=== PATIENT | female | born 1960 | race Caucasian/White ===

== ENCOUNTER 2018-03-05 15:10 | Observation (INO) | payer BC ==
[2018-03-05 15:34] LABS: Absolute Lymphocytes (CBC) 1.9 K/uL (0.7-4.9); Absolute Monocytes 0.7 K/uL (0.1-1.3); Absolute Neutrophil 3.9 K/uL (1.8-8.0); Basophils % 0.4 % (0-1.3); Eosinophils % 3.3 % (0-4.4); Hematocrit 46.3 % (36.0-45.0); Lymphocytes % 28.2 % (15.3-44.8); MCH 30.3 pg (27.0-35.0); MCV 91.7 fL (80-100); MPV 8.8 fL (7.6-11.3); RBC Red Blood Cell Count 5.05 M/uL (3.86-4.86)
[2018-03-05 15:40] LABS: Protime INR 0.9
[2018-03-05 15:54] LABS: Albumin 4.1 g/dL (3.4-5.0); Bilirubin Direct 0.1 mg/dL (0-0.2); Bilirubin Total 0.4 mg/dL (0.2-1.0); Magnesium 2.3 mg/dL (1.8-2.4); Potassium 3.8 mmol/L (3.5-5.1); Protein, Total 7.8 g/dL (6.4-8.2)
--- NOTE | 2018-03-05 17:26 | RAD REPORT ---
EXAM DESCRIPTION: Mathieu Single View03/05/2018 3:50 pm CLINICAL HISTORY: Chest pain COMPARISON: none FINDINGS: The lungs appear clear of acute infiltrate. The heart is normal size IMPRESSION: No acute abnormalities displayed
--- NOTE | 2018-03-05 18:14 | EDPHYS ---
Physician Documentation [facility] Name: Saloni Reyna Age: 57 yrs Sex: Female : 1960 Arrival Date: 03/05/2018 Time: 15:10 Bed 25 Private MD: Zach Luna B ED Physician Eugenio Islas HPI: 03/05 17:11 This 57 yrs old Female presents to ER via Ambulatory with complaints of Chest jr8 Pain, Shortness Of Breath. 17:11 The patient or guardian reports chest pain that is located primarily in the substernal jr8 area. Onset: acutely, today. The pain does not radiate. Associated signs and symptoms: Pertinent positives: shortness of breath. The chest pain is described as sharp. Duration: The patient or guardian reports a single episode. Modifying factors: The symptoms are alleviated by nothing. the symptoms are aggravated by nothing. Severity of pain: At its worst the pain was moderate in the emergency department the pain has improved. The patient has not experienced similar symptoms in the past. The patient has not recently seen a physician. Patient stated that she woke up not feeling well. Has been tired for some time. Recently was put on medicine to help her sleep. Stated that she has been under a lot of stress lately. brought her and wanted her to be checked out because she started to have chest pain and shortness of breath. Stated that she was staring off into space. Patient recalls all events . Historical: - Allergies: 15:40 No Known Allergies; kr2 - Home Meds: 15:40 omeprazole 40 mg Oral cpDR 1 cap once daily [Active]; duloxetine oral oral once daily kr2 [Active]; 15:41 multivitamin oral cap [Active]; kr2 - PMHx: 15:40 Hypertension; kr2 - PSHx: 15:40 Endometrial Ablation; Liposuction; kr2 - Immunization history:: Adult Immunizations unknown. - Social history:: Smoking status: Patient/guardian denies using tobacco. - Ebola Screening: : No symptoms or risks identified at this time. ROS: 17:11 Eyes: Negative for injury, pain, redness, and discharge, ENT: Negative for injury, jr8 pain, and discharge, Neck: Negative for injury, pain, and swelling, Abdomen/GI: Negative for abdominal pain, nausea, vomiting, diarrhea, and constipation, Back: Negative for injury and pain, MS/Extremity: Negative for injury and deformity, Skin: Negative for injury, rash, and discoloration, Neuro: Negative for headache, weakness, numbness, tingling, and seizure. 17:11 Cardiovascular: Positive for chest pain, Negative for edema, orthopnea, palpitations, paroxysmal nocturnal dyspnea. 17:11 Respiratory: Positive for shortness of breath, Negative for cough, dyspnea on exertion, hemoptysis, orthopnea, pleurisy, sputum production, wheezing. Exam: 17:11 Constitutional: This is a well developed, well nourished patient who is awake, alert, jr8 and in no acute distress. Eyes: Pupils equal round and reactive to light, extra-ocular motions intact. Lids and lashes normal. Conjunctiva and sclera are non-icteric and not injected. Cornea within normal limits. Periorbital areas with no swelling, redness, or edema. ENT: Nares patent. No nasal discharge, no septal abnormalities noted. Tympanic membranes are normal and external auditory canals are clear. Oropharynx with no redness, swelling, or masses, exudates, or evidence of obstruction, uvula midline. Mucous membranes moist. Neck: Trachea midline, no thyromegaly or masses palpated, and no cervical lymphadenopathy. Supple, full range of motion without nuchal rigidity, or vertebral point tenderness. No Meningismus. Cardiovascular: Regular rate and rhythm with a normal S1 and S2. No gallops, murmurs, or rubs. Normal PMI, no JVD. No pulse deficits. Respiratory: Lungs have equal breath sounds bilaterally, clear to auscultation and percussion. No rales, rhonchi or wheezes noted. No increased work of breathing, no retractions or nasal flaring. Abdomen/GI: Soft, non-tender, with normal bowel sounds. No distension or tympany. No guarding or rebound. No evidence of tenderness throughout. Back: No spinal tenderness. No costovertebral tenderness. Full range of motion. Skin: Warm, dry with normal turgor. Normal color with no rashes, no lesions, and no evidence of cellulitis. MS/ Extremity: Pulses equal, no cyanosis. Neurovascular intact. Full, normal range of motion. Neuro: Awake and alert, GCS 15, oriented to person, place, time, and situation. Cranial nerves II-XII grossly intact. Motor strength 5/5 in all extremities. Sensory grossly intact. Cerebellar exam normal. Normal gait. Vital Signs: 15:25 BP 185 / 100; Pulse 60; Resp 22; Temp 97.7; Pulse Ox 99% on 2 lpm NC; Weight 58.06 kg; kr2 Height 5 ft. 4 in. (162.56 cm); Pain 5/10; 15:43 BP 158 / 89; Pulse 76; Resp 18; Pulse Ox 98% on 2 lpm NC; kr2 16:30 BP 169 / 93; Pulse 74; Resp 18; Pulse Ox 98% on R/A; kr2 17:36 BP 159 / 87; Pulse 70; Resp 16; Pulse Ox 99% on R/A; kr2 18:03 BP 155 / 75; Pulse 72; Resp 16; Pulse Ox 98% ; kr2 19:00 BP 152 / 78; Pulse 70; Resp 19; Pulse Ox 99% on R/A; kr2 20:00 BP 158 / 70; Pulse 72; Resp 17; Pulse Ox 99% on R/A; kr2 21:15 BP 160 / 87; Pulse 78; Resp 17; Pulse Ox 100% on R/A; kr2 22:30 BP 156 / 88; Pulse 70; Resp 18; Pulse Ox 99% on R/A; kr2 23:20 BP 146 / 86; Pulse 68; Resp 17; Pulse Ox 97% on 2 lpm NC; kr2 15:25 Body Mass Index 21.97 (58.06 kg, 162.56 cm) kr2 23:20 Patient placed back on nasal cannula by provider for comfort kr2 MDM: 15:16 Patient medically screened. jr8 17:11 Differential diagnosis: abnormal EKG, acute myocardial infarction, acute pericarditis, jr8 anxiety, chest wall pain, costochondritis, esophagitis, gastritis, gastroesophageal reflux disease (GERD), pancreatitis, pleurisy, pneumonia, pulmonary embolus, stable angina, thoracic aortic disection, unstable angina. Data reviewed: vital signs, nurses notes, lab test result(s), EKG, radiologic studies, plain films. Data interpreted: Pulse oximetry: on room air is 98 %. Interpretation: normal. Counseling: I had a detailed discussion with the patient and/or guardian regarding: the historical points, exam findings, and any diagnostic results supporting the discharge/admit diagnosis, lab results, radiology results, the need for outpatient follow up, a family practitioner, to return to the emergency department if symptoms worsen or persist or if there are any questions or concerns that arise at home. 19:38 Counseling: I had a detailed discussion with the patient and/or guardian regarding: the pm1 historical points, exam findings, and any diagnostic results supporting the discharge/admit diagnosis, lab results, the need for further work-up and treatment in the hospital. 19:40 ED course: Patient with chest pain level between 0-1 prior to being told that she will pm1 be hospitalized. 20:50 ED course: Patient reports chest pain level 4/10. Pain medication ordered. pm1 22:15 ED course: Patient reports increased chest pain 6/10. Repeat ECG ordered. Will give pm1 patient nitro 1 inch paste.. 22:20 ED course: No ECG changes present. pm1 23:02 ED course: Nitropaste effective for pain relief. Patient reports pain level 2/10. pm1 03/05 15:16 Order name: Basic Metabolic Panel; Complete Time: 15: [facility] 03/05 15:16 Order name: CBC with Diff; Complete Time: 15: [facility] 03/05 15:16 Order name: LFT's; Complete Time: 15: [facility] 03/05 15:16 Order name: Magnesium; Complete Time: 15: 03/05 15:16 Order name: NT PRO-BNP; Complete Time: 15: 03/05 15:16 Order name: PT-INR; Complete Time: 15: [facility] 03/05 15:16 Order name: Troponin (emerg Dept Use Only); Complete Time: 15: [facility] 03/05 16:54 Order name: Troponin (emerg Dept Use Only); Complete Time: 19: [facility] 03/05 17:42 Order name: Urine Dipstick--Ancillary (enter results); Complete Time: 19: 03/05 20:41 Order name: Lipid Profile [facility] 03/05 20:41 Order name: Lipid Profile; Complete Time: 07:16 [facility] 03/05 20:41 Order name: Troponin I [facility] 03/05 20:41 Order name: Troponin I; Complete Time: 07:16 [facility] 03/05 20:41 Order name: Troponin I; Complete Time: 07:16 [facility] 03/05 15:16 Order name: XRAY Chest (1 view); Complete Time: 17:27 [facility] 03/05 15:16 Order name: EKG; Complete Time: 15:16 [facility] 03/05 15:16 Order name: Cardiac monitoring; Complete Time: 15:25 [facility] 03/05 15:16 Order name: EKG - Nurse/Tech; Complete Time: 15:25 [facility] 03/05 15:16 Order name: IV Saline Lock; Complete Time: 15: [facility] 03/05 15:16 Order name: Labs collected and sent; Complete Time: 15: [facility] 03/05 15:16 Order name: O2 Per Protocol; Complete Time: 15: [facility] 03/05 15:16 Order name: O2 Sat Monitoring; Complete Time: 15: [facility] 03/05 20:41 Order name: CONS Physician Consult [facility] 03/05 20:42 Order name: Heart Healthy [facility] 03/05 20:42 Order name: EKG Electrocardiogram [facility] 03/05 20:42 Order name: EKG Electrocardiogram [facility] 03/05 15:16 Order name: Urine Dipstick-Ancillary (obtain specimen); Complete Time: 17:17 jr Administered Medications: 19:53 Drug: Aspirin Chewable Tablet 324 mg Route: PO; kr2 21:23 Follow up: Response: No adverse reaction kr2 21:15 Drug: morphine 4 mg Route: IVP; Site: left antecubital; kr2 21:42 Follow up: Response: No adverse reaction; Pain is decreased kr2 21:23 Not Given (Patient Refused): Lovenox 1 mg/kg Sub-Q once kr2 22:44 Drug: Nitro-Bid Ointment 2 % 1 inches Route: Transdermal; Site: anterior chest wall; kr2 23:33 Follow up: Response: No adverse reaction; Pain is decreased kr2 Disposition: 03/06 07:17 Co-signature as Attending Physician, Eugenio Islas MD. rn Disposition: 03/05/18 19:40 Hospitalization ordered by Kurt Caputo for Observation. Preliminary diagnosis is Chest pain, unspecified. - Bed requested for Telemetry/MedSurg (observation). - Status is Observation. kr2 - Condition is Stable. - Problem is new. - Symptoms have improved. UTI on Admission? No Signatures: Dispatcher [employer] EDMS Nury Smith RN RN mw Eugenio Islas MD MD rn Roszak, Josh, PA PA jr8 Eduardo Lynch, HAT BRIM CURLER HAT BRIM CURLER pm1 An Rangel, RN RN kr2 Corrections: (The following items were deleted from the chart) 03/05 18:13 18:13 03/05/2018 18:13 Discharged to Home. Impression: Chest pain, unspecified. jr8 Condition is Stable. Forms are Medication Reconciliation Form, Thank You Letter, Antibiotic Education, Prescription Opioid Use. Follow up: Zach Luna; When: 2 - 3 days; Reason: Recheck today's complaints, Continuance of care, Re-evaluation by your physician. Problem is new. Symptoms have improved. jr8 19:39 18:13 03/05/2018 18:13 Discharged to Home. Impression: Chest pain, unspecified; Anxiety pm1 disorder, unspecified. Condition is Stable. Forms are Medication Reconciliation Form, Thank You Letter, Antibiotic Education, Prescription Opioid Use. Follow up: Zach Luna; When: 2 - 3 days; Reason: Recheck today's complaints, Continuance of care, Re-evaluation by your physician. Problem is new. Symptoms have improved. jr8 20:46 19:40 Hospitalization Ordered by Kurt Caputo MD for Observation. Preliminary mw diagnosis is Chest pain, unspecified. Bed requested for Telemetry/MedSurg (observation). Status is Observation. Condition is Stable. Problem is new. Symptoms have improved. UTI on Admission? No. pm1 23:41 20:46 03/05/2018 19:40 Hospitalization Ordered by Kurt Caputo MD for Observation. kr2 Preliminary diagnosis is Chest pain, unspecified. Bed requested for Telemetry/MedSurg (observation). Status is Observation. Condition is Stable. Problem is new. Symptoms have improved. UTI on Admission? No. mw
--- NOTE | 2018-03-05 18:14 | ER ---
Nurse's Notes [facility] Name: Saloni Reyna Age: 57 yrs Sex: Female : 1960 Arrival Date: 03/05/2018 Time: 15:10 Bed 25 Private MD: Zach Luna B Diagnosis: Chest pain, unspecified Presentation: 03/05 15:20 Presenting complaint: Patient states: she has "not been feeling right all day and kr2 started having pain in the center of her chest. Transition of care: patient was not received from another setting of care. Onset of symptoms was March 05, 2018. Risk Assessment: Do you want to hurt yourself or someone else? Patient reports no desire to harm self or others. Initial Sepsis Screen: Does the patient meet any 2 criteria? No. Patient's initial sepsis screen is negative. Does the patient have a suspected source of infection? No. Patient's initial sepsis screen is negative. Care prior to arrival: None. 15:20 Method Of Arrival: Ambulatory kr2 15:20 Acuity: GREGOR 3 kr2 Triage Assessment: 15:30 General: Appears distressed, uncomfortable, well groomed, well developed, well kr2 nourished, Behavior is cooperative, anxious. Pain: Complains of pain in xyphoid area and mid-sternal area. EENT: Oral mucosa is moist. Neuro: Level of Consciousness is awake, alert, obeys commands, Oriented to person, place, time, situation, Appropriate for age. Cardiovascular: Capillary refill < 3 seconds in bilateral fingers Patient's skin is warm and dry. Respiratory: Airway is patent Respiratory effort is even, unlabored, Respiratory pattern is hyperventilation Patient instructed to slow breathing, followed instructions and deep breaths taken in through nose and out through her mouth Breath sounds are clear bilaterally. GI: Abdomen is flat, non-distended. : Denies burning with urination. Derm: Skin is intact, is healthy with good turgor, Skin is pink, warm \\T\\ dry. Musculoskeletal: Circulation, motion, and sensation intact. Historical: - Allergies: 15:40 No Known Allergies; kr2 - Home Meds: 15:40 omeprazole 40 mg Oral cpDR 1 cap once daily [Active]; duloxetine oral oral once daily kr2 [Active]; 15:41 multivitamin oral cap [Active]; kr2 - PMHx: 15:40 Hypertension; kr2 - PSHx: 15:40 Endometrial Ablation; Liposuction; kr2 - Immunization history:: Adult Immunizations unknown. - Social history:: Smoking status: Patient/guardian denies using tobacco. - Ebola Screening: : No symptoms or risks identified at this time. Screenin:29 Abuse screen: Denies threats or abuse. Denies injuries from another. Nutritional kr2 screening: No deficits noted. Tuberculosis screening: No symptoms or risk factors identified. Fall Risk None identified. Assessment: 15:25 Pain: Pain does not radiate. Pain began gradually. kr2 15:25 Reassessment: See triage assessment. kr2 15:44 Reassessment: Patient appears in no apparent distress at this time. Patient and/or kr2 family updated on plan of care and expected duration. Pain level reassessed. Patient is alert, oriented x 3, equal unlabored respirations, skin warm/dry/pink. Patient states she is feeling better that the pain is resolving. Family member at bedside states that as long as he reminds her to slow her breathing the pain goes away and she feels better. 16:30 Reassessment: Patient appears in no apparent distress at this time. Patient and/or kr2 family updated on plan of care and expected duration. Pain level reassessed. Patient is alert, oriented x 3, equal unlabored respirations, skin warm/dry/pink. Patient denies pain at this time. Patient states feeling better. 17:30 Reassessment: Patient appears in no apparent distress at this time. Patient and/or kr2 family updated on plan of care and expected duration. Pain level reassessed. Patient is alert, oriented x 3, equal unlabored respirations, skin warm/dry/pink. Patient denies pain at this time. Patient states feeling better. 18:30 Reassessment: Patient appears in no apparent distress at this time. Patient and/or kr2 family updated on plan of care and expected duration. Pain level reassessed. Patient is alert, oriented x 3, equal unlabored respirations, skin warm/dry/pink. Patient denies pain at this time. Patient states feeling better. 19:30 Reassessment: No changes from previously documented assessment. kr2 21:49 Reassessment: Patient appears in no apparent distress at this time. Patient and/or kr2 family updated on plan of care and expected duration. Pain level reassessed. Patient is alert, oriented x 3, equal unlabored respirations, skin warm/dry/pink. Patient complains of burning pressure in the center of her chest, rates a 6/10. States "I was fine until just about 1 minute ago" Provider notified. EKG ordered and being performed by tech at this time. Room on telemetry floor not ready at this time. 23:26 Reassessment: Patient appears in no apparent distress at this time. Patient and/or kr2 family updated on plan of care and expected duration. Pain level reassessed. Patient is alert, oriented x 3, equal unlabored respirations, skin warm/dry/pink. Report called to receiving nurse Tatiana. Patient states feeling better. Patient states symptoms have improved. Vital Signs: 15:25 BP 185 / 100; Pulse 60; Resp 22; Temp 97.7; Pulse Ox 99% on 2 lpm NC; Weight 58.06 kg; kr2 Height 5 ft. 4 in. (162.56 cm); Pain 5/10; 15:43 BP 158 / 89; Pulse 76; Resp 18; Pulse Ox 98% on 2 lpm NC; kr2 16:30 BP 169 / 93; Pulse 74; Resp 18; Pulse Ox 98% on R/A; kr2 17:36 BP 159 / 87; Pulse 70; Resp 16; Pulse Ox 99% on R/A; kr2 18:03 BP 155 / 75; Pulse 72; Resp 16; Pulse Ox 98% ; kr2 19:00 BP 152 / 78; Pulse 70; Resp 19; Pulse Ox 99% on R/A; kr2 20:00 BP 158 / 70; Pulse 72; Resp 17; Pulse Ox 99% on R/A; kr2 21:15 BP 160 / 87; Pulse 78; Resp 17; Pulse Ox 100% on R/A; kr2 22:30 BP 156 / 88; Pulse 70; Resp 18; Pulse Ox 99% on R/A; kr2 23:20 BP 146 / 86; Pulse 68; Resp 17; Pulse Ox 97% on 2 lpm NC; kr2 15:25 Body Mass Index 21.97 (58.06 kg, 162.56 cm) kr2 23:20 Patient placed back on nasal cannula by provider for comfort kr2 ED Course: 15:10 Patient arrived in ED. mr 15:11 Zach Luna MD is Private Physician. mr 15:16 Azar Clifton PA is PHCP. jr8 15:16 Eugenio Islas MD is Attending Physician. jr8 15:20 Patient has correct armband on for positive identification. Bed in low position. Call kr2 light in reach. Side rails up X2. Adult w/ patient. court recording monitor on. Pulse ox on. NIBP on. Sitter at bedside. Door closed. Warm blanket given. Head of bed elevated. 15:20 Inserted saline lock: 22 gauge in left antecubital area, using aseptic technique. Blood kr2 collected. 15:22 Oxygen administration via nasal cannula \\T\\ 2L/min. kr2 15:25 An Rangel, CHICO is Primary Nurse. kr2 15:29 Triage completed. kr2 15:32 Arm band placed on. kr2 15:35 EKG done, by business technology architect. reviewed by Azar JONES. sm3 15:42 X-ray completed. Portable x-ray completed in exam room. Patient tolerated procedure bb2 well. 15:44 XRAY Chest (1 view) In Process Unspecified. EDMS 18:13 Zach Luna MD is Referral Physician. jr8 19:20 IV discontinued, intact, bleeding controlled, No redness/swelling at site. Pressure kr2 dressing applied, Patient wanted IV removed. 19:38 PHCP role handed off by Azar Clifton PA pm1 19:38 Eduardo Lynch NP is PHCP. pm1 19:40 Kurt Caputo MD is Hospitalizing Provider. pm1 21:10 Inserted saline lock: 22 gauge in left hand, using aseptic technique. kr2 21:50 EKG done, by ED staff, reviewed by Dru Dahl MD. kr2 23:28 No provider procedures requiring assistance completed. kr2 Administered Medications: 19:53 Drug: Aspirin Chewable Tablet 324 mg Route: PO; kr2 21:23 Follow up: Response: No adverse reaction kr2 21:15 Drug: morphine 4 mg Route: IVP; Site: left antecubital; kr2 21:42 Follow up: Response: No adverse reaction; Pain is decreased kr2 21:23 Not Given (Patient Refused): Lovenox 1 mg/kg Sub-Q once kr2 22:44 Drug: Nitro-Bid Ointment 2 % 1 inches Route: Transdermal; Site: anterior chest wall; kr2 23:33 Follow up: Response: No adverse reaction; Pain is decreased kr2 Outcome: 18:13 Discharge ordered by . marilu 19:40 Decision to Hospitalize by Provider. pm1 23:29 Admitted to Tele accompanied by tech, family with patient, via wheelchair, room 428, kr2 with oxygen, with chart, Report called to Tatiana 23:29 Condition: stable 23:29 Instructed on the need for admit, Demonstrated understanding of instructions. 23:41 Patient left the ED. kr2 Signatures: Dispatcher [employer] EDMS Fernanda Linares mr Azar Clifton, ROBERT PA jr8 Eduardo Lynch, SCHOOL ATTENDANCE SECRETARY SCHOOL ATTENDANCE SECRETARY pm1 An Rangel RN RN kr2 Shannan Shi bb2 Madina Chambers sm3 Corrections: (The following items were deleted from the chart) 15:44 15:25 BP 158 / 89; Pulse 60bpm; Resp 22bpm; Pulse Ox 99% 2 lpm Nasal Cannula; Temp kr2 97.7F; 58.06 kg; Height 5 ft. 4 in.; BMI: 21.9; Pain 5/10; kr2 23:28 21:49 Reassessment: Patient appears in no apparent distress at this time. Patient kr2 and/or family updated on plan of care and expected duration. Pain level reassessed. Patient is alert, oriented x 3, equal unlabored respirations, skin warm/dry/pink. Patient complains of burning pressure in the center of her chest, rates a 6/10. States "I was fine until just about 1 minute ago" Provider notified. EKG ordered and being performed by [employer] at this time kr2 23:28 23:26 Reassessment: Report called to receiving nurse Tatiana. kr2 kr2 23:36 23:34 BP 146 / 86; Pulse 68bpm; Resp 17bpm; Pulse Ox 97% 2 lpm Nasal Cannula; Patient kr2 placed back on nasal cannula by provider for comfort ; kr2
--- NOTE | 2018-03-05 18:48 | EKG ---
Test Date: 2018-03-05 Test Time: 15:20:09 Paper Gluing Operator: EMILIA MEASUREMENT RESULTS: Intervals: Rate: 89 MT: 122 QRSD: 74 QT: 380 QTc: 462 Gilbert: P: 70 MT: 122 QRS: 90 T: 44 INTERPRETIVE STATEMENTS: Sinus rhythm with premature atrial complexes Rightward axis Borderline ECG No previous ECG available for comparison Electronically Signed On 03-05-18 18:47:09 CDT by Ravi Faustin
[2018-03-05 19:18] LABS: Urine Blood NEGATIVE (NEG); Urine Glucose NEGATIVE (NEG); Urine Protein NEGATIVE (NEG); Urine pH 7.5 (5.0-7.0)
[2018-03-05] MEDS ORDERED: ASPIRIN 81 MG CHEWABLE TABLET ONE (19:52)
[2018-03-05] MEDS ORDERED: ACETAMINOPHEN 500 MG TAB PO PRN (20:39)
[2018-03-05] MEDS ORDERED: ALPRAZOLAM 0.25 MG TABLET PO PRN (20:39)
[2018-03-05] MEDS ORDERED: MORPHINE 4 MG/ML SYR IV PRN (20:39)
[2018-03-05] MEDS ORDERED: MORPHINE 4 MG/ML SYR ONE (21:01)
[2018-03-05] MEDS ORDERED: NITROGLYCERIN 1 GM PKT TD ONE (22:44)
[2018-03-05 23:59] VITALS: BMI 21.2
[2018-03-06] MEDS: METOPROLOL TAR 50 MG TAB PO SCH ×2 (00:03→09:11)
--- NOTE | 2018-03-06 06:59 | P.HP ---
Certification for Inpatient Patient admitted to: Observation With expected LOS: <2 Midnights Patient will require the following post-hospital care: None Practitioner: I am a practitioner with admitting privileges, knowledge of patient current condition, hospital course, and medical plan of care. Services: Services provided to patient in accordance with Admission requirements found in Title 42 Section 412.3 of the Code of Federal Regulations Patient History Date of Service: 03/05/18 Reason for admission: Chest pain rule out acute coronary syndrome History of Present Illness: Patient is a 57-year-old female who recently saw her primary care provider and had a good checkup. Patient has a history of hypertension however she has not been treated with any medications for years. She maintains her blood pressure by exercising and eating properly. This evening she was not feeling well and was having chest discomfort. She came into the emergency room and her blood pressure was significantly elevated. A couple days ago her blood pressure was 120 is over 80s. She was surprised her blood pressure was so elevated. The physician reading assistant who saw her in the emergency room gave her nitro paste and aspirin. Patient blood pressure is stable. Patient was admitted for rule out for acute coronary syndrome as her 2nd troponin had become slightly elevated. Patient denies any history of diabetes or cholesterol. She denies any significant family history. Patient does not smoke. Patient was not diaphoretic or short of breath. Her only current complaint is a headache from most likely the nitropaste. Allergies No Known Allergies Allergy (Unverified 03/05/18 20:50) Home Medications: Duloxetine HCl 60 mg PO BEDTIME 03/06/18 Estradiol/Norethindrone Acet [Estradiol-Noreth 1-0.5 mg Tab] 1 tab PO DAILY Omeprazole [Prilosec] 40 mg PO [facility] 03/06/18 - Past Medical/Surgical History Has patient received pneumonia vaccine in the past: No Diabetic: No -: HTN -: Tonsillectomy -: breast reduction -: liposuction -: endometrial ablation - Family History Mother Notes: Alzheimers Father Medical History: Hypertension, Diabetes - Social History Smoking Status: Never smoker Alcohol use: Yes CD- Drugs: No Caffeine use: Yes Place of Residence: Home Review of Systems 10-point ROS is otherwise unremarkable Physical Examination - Vital Signs Temperature: 98 F Blood Pressure: 97/57 Pulse: 52 Respirations: 20 Pulse Ox (%): 98 - Physical Exam General: Alert, In no apparent distress, Oriented x3 HEENT: Atraumatic, PERRLA, Mucous membr. moist/pink, EOMI, Sclerae nonicteric Neck: Supple, 2+ carotid pulse no bruit, No LAD, Without JVD or thyroid abnormality Respiratory: Clear to auscultation bilaterally, Normal air movement Cardiovascular: Regular rate/rhythm, Normal S1 S2, No murmurs Gastrointestinal: Normal bowel sounds, Soft and benign, Non-distended, No tenderness Musculoskeletal: No clubbing, No swelling, No tenderness Integumentary: No rashes Neurological: Normal gait, Normal speech, Normal strength at 5/5 x4 extr, Normal tone, Sensation intact, Cranial nerves 3-12 intact, Normal affect Lymphatics: No axilla or inguinal lymphadenopathy - Studies Laboratory Data (last 24 hrs) 03/05/18 15:20: PT 10.6, INR 0.90 03/05/18 15:20: WBC 6.8, Hgb 15.3 H, Hct 46.3 H, Plt Count 246 03/05/18 15:20: Sodium 140, Potassium 3.8, BUN 8, Creatinine 0.90, Glucose 109 H , Magnesium 2.3, Total Bilirubin 0.4, AST 24, ALT 20, Alkaline Phosphatase 101 Assessment & Plan - Problems (Diagnosis) (1) Chest pain, rule out acute myocardial infarction Current Visit: Yes Status: Acute - Plan 1. Serial troponins and EKG 2. Cardiology consultation 3. Echocardiogram and inpatient stress test(pending cardiology evaluation) 4. Anti-platelet therapy, anti coagulation, beta-sanju, statin, and O2 as needed 5. IV morphine for pain 6. Nitro p.r.n. Discharge Plan: Home Plan to discharge in: 24 Hours - Advance Directives Does patient have a Living Will: No Does patient have a Durable POA for Healthcare: No - Code Status/Comfort Care Code Status Assessed: Yes Code Status: Full Code Critical Care: No Time Spent Managing PTS Care (In Minutes): 50
--- NOTE | 2018-03-06 07:54 | P.DS ---
Discharge Date: 03/06/18 Disposition: ROUTINE DISCHARGE Discharge Condition: GOOD Reason for Admission: Chest pain rule out acute coronary syndrome Consultations: CARDIOLOGY - Problems (1) Chest pain, rule out acute myocardial infarction Current Visit: Yes Status: Acute Brief History of Present Illness: Patient is a 57-year-old female who recently saw her primary care provider and had a good checkup. Patient has a history of hypertension however she has not been treated with any medications for years. She maintains her blood pressure by exercising and eating properly. This evening she was not feeling well and was having chest discomfort. She came into the emergency room and her blood pressure was significantly elevated. A couple days ago her blood pressure was 120 is over 80s. She was surprised her blood pressure was so elevated. The physician topographical field assistant who saw her in the emergency room gave her nitro paste and aspirin. Patient blood pressure is stable. Patient was admitted for rule out for acute coronary syndrome as her 2nd troponin had become slightly elevated. Patient denies any history of diabetes or cholesterol. She denies any significant family history. Patient does not smoke. Patient was not diaphoretic or short of breath. Her only current complaint is a headache from most likely the nitropaste. Hospital Course: PATIENT'S TROPONINS HAVE BEEN NEGATIVE. PATIENT'S BLOOD PRESSURE IS BETTER CONTROLLED. CLINICALLY PATIENT IS DOING WELL AND IS STABLE FOR DISCHARGE HOME. PATIENT WILL FOLLOW UP WITH PRIMARY CARE PROVIDER IN 1-2 WEEKS. Vital Signs/Physical Exam: Temp Pulse Resp BP Pulse Ox 98 F 52 20 97/57 L 98 03/06/18 07:51 03/06/18 07:51 03/06/18 07:51 03/06/18 07:51 03/06/18 07:51 General: Alert, In no apparent distress, Oriented x3 Laboratory Data at Discharge: WBC 6.8 K/uL (4.3-10.9) 03/05/18 15:20 Hgb 15.3 g/dL (12.0-15.0) H 03/05/18 15:20 Hct 46.3 % (36.0-45.0) H 03/05/18 15:20 Plt Count 246 K/uL (152-406) 03/05/18 15:20 PT 10.6 SECONDS (9.5-12.5) 03/05/18 15:20 INR 0.90 03/05/18 15:20 Sodium 140 mmol/L (136-145) 03/05/18 15:20 Potassium 3.8 mmol/L (3.5-5.1) 03/05/18 15:20 BUN 8 mg/dL (7-18) 03/05/18 15:20 Creatinine 0.90 mg/dL (0.55-1.3) 03/05/18 15:20 Glucose 109 mg/dL (74-106) H 03/05/18 15:20 Magnesium 2.3 mg/dL (1.8-2.4) 03/05/18 15:20 Total Bilirubin 0.4 mg/dL (0.2-1.0) 03/05/18 15:20 AST 24 U/L (15-37) 03/05/18 15:20 ALT 20 U/L (12-78) 03/05/18 15:20 Alkaline Phosphatase 101 U/L (45-117) 03/05/18 15:20 Troponin I < 0.02 ng/mL (0.0-0.045) 03/06/18 04:58 Triglycerides 58 mg/dL (<150) 03/06/18 04:58 Cholesterol 186 mg/dL (<200) 03/06/18 04:58 HDL Cholesterol 66 mg/dL (40-60) H 03/06/18 04:58 Cholesterol/HDL Ratio 2.82 03/06/18 04:58 Home Medications: Duloxetine HCl 60 mg PO BEDTIME 03/06/18 Estradiol/Norethindrone Acet [Estradiol-Noreth 1-0.5 mg Tab] 1 tab PO DAILY Omeprazole [Prilosec] 40 mg PO [facility] 03/06/18 Patient Discharge Instructions: OK TO DC IV AND DC HOME IF OKAY WITH CARDIOLOGY. FOLLOW-UP WITH PRIMARY CARE PROVIDER IN 1-2 WEEKS. FOLLOW-UP WITH CARDIOLOGY IN 1-2 WEEKS. RETURN TO THE ER IF SYMPTOMS WORSENS. CALL DR. BRICEÑO AT [phone] IF ANY QUESTIONS REGARDING HOSPITAL STAY. PLEASE CALL THE FLOOR AT IF ANY MEDICATION OR NURSING QUESTIONS. Diet: Low sodium Activity: Fall precautions Time spent managing pt's care (in minutes): 20
--- NOTE | 2018-03-06 08:17 | EKG ---
Test Date: 2018-03-05 Test Time: 21:52:36 [employer] Administrator: MEASUREMENT RESULTS: Intervals: Rate: 69 TX: 134 QRSD: 78 QT: 416 QTc: 445 [place]: P: 25 TX: 134 QRS: 75 T: 68 INTERPRETIVE STATEMENTS: Normal sinus rhythm Nonspecific ST abnormality Abnormal ECG Compared to ECG 03/05/2018 15:20:09 ST (T wave) deviation now present Atrial premature complex(es) no longer present Right-axis deviation no longer present Electronically Signed On 03-06-18 08:16:12 CDT by Ravi Faustin
[2018-03-06] MEDS ORDERED: ASPIRIN EC 81 MG TAB PO SCH (09:00)
[2018-03-06] MEDS ORDERED: ENOXAPARIN 40 MG/0.4 ML SQ SCH (09:00)
[2018-03-06 10:22] VITALS: O2SAT 97
[2018-03-06 12:14] VITALS: BP 129/73; TEMP 98.2
--- NOTE | 2018-03-06 12:15 | CON ---
Date of Consultation: 03/06/2018 Reason For Consultation: Chest pain and shortness of breath. History Of Present Illness: Ms. Reyna is a 57-year-old woman, who is pretty healthy, has a history of hypertension, family history of heart disease, gastroesophageal reflux disease. She has history of some depression. She takes Cymbalta, hormones, and Prilosec. Denied any dyslipidemia, tobacco ab use, or diabetes. Is under a lot of stress because of taking care of her family, mom, her dad, and s ome social issues. Came in with substernal chest pressure with some shortness of breath that lasted about 30-45 minute without any nausea, vomiting, diaphoresis, PND, orthopnea, pedal edema, palpitatio ns, or syncope. Her EKG was normal. Chest x-ray was normal. Her troponin was slightly elevated at 0.05. She is asymptomatic now. Allergies: NONE. Review of Systems: Negative. Past Medical History: As stated above. Social History: Negative for tobacco, drugs, or alcohol. Family History: Positive for heart disease. Medications: Listed earlier. Physical Examination: Vital signs: Stable. She was afebrile. HEENT: Negative. Neck: Supple. No bruit. Chest: Clear. Cardiac: Revealed a regular rhythm and rate without any murmurs, gallops, or rubs. Abdomen: Benign. Extremities: revealed no clubbing, cyanosis, or edema. Diagnostic Data: As stated earlier. Impression And Plan: 1.Ms. Reyna' symptoms are certainly suspicious with chest pressure, some left arm radiation, some shortness of breath. Troponin minimally elevated. Asymptomatic now. Normal EKG, normal chest x-ray . She does have some risk factors including hypertension and family history. She apparently has had a heart catheterization before by Dr. Menon showing normal coronaries. Has had a workup with echo and stress test, last of which was 4 years ago. I think I am comfortable with her going home. I wo uld add a low-dose beta-sanju and maybe consider nitroglycerin p.r.n. On Thursday, she will be getti ng a call from my office and she will decide whether to come to my office and have a stress test or g o back and see Dr. Menon. GARRY/AYAD Voice ID: [id number] Report ID: [id number]
== END 2018-03-06 12:37 | disposition home or self-care (01) ==
LOC: ER 15:10 → 4TH 21:02
PROVIDERS: ADMIT Hospitalist; ATTEND Hospitalist
DX: R07.9 Chest pain, unspecified (principal)
CPT/HCPCS: 36415; 71045; 80048; 80061; 80076; 81003; 83735; 83880; 84484; 85025; 85610; 93005; 96374; 99285; G0378; J1650

== ENCOUNTER 2021-04-22 17:09 | Emergency (ER) | payer BC ==
--- OUTSIDE RECORDS SUMMARY | 2021-04-22 17:12 | XMS REPORT | Continuity of Care Document ---
:1960 Author Organization [facility] t Address [address] [place] [address] [place] [address] Care Team Providers Name Role Phone Giovana Luna Primary Care Physician Jose GOLDEN Attending Clinician Unavailable Emily GOLDEN, T Attending Clinician Unavailable Only, Db Test Attending Clinician Unavailable Brett NARAYAN Attending Clinician Doctor Unassigned, Name Attending Clinician Unavailable Payers Payer Name Policy Type Policy Number Effective Date Expiration Date S ource Problems This patient has no known problems. Allergies, Adverse Reactions, Alerts This patient has no known allergies or adverse reactions. Social History Social Habit Start Date Stop Date Quantity Comments Source Exposure to Not sure [facility] SARS-CoV-2 (event) [facility] Sex Assigned At [birth year] [facility] 00:00:00 00:00:00 [facility] Smoking Status Start Date Stop Date Source Unknown if ever smoked General acute hospital Medications This patient has no known medications. Procedures Procedure Date / Time Performed Performing Clinician [facility] e ASSIGNMENT OF BENEFITS 2021-04-17 14:36:47 Doctor Unassigned, No [facility] Name [facility] Encounters Start End Encounter Admission Attending Care Care Encounter Source Date/Time Date/Time Type Type Clinicians Facility Department ID 2021-04-19 2021-04-19 Telephone Shira Garcia [id number] [facility] 00:00:00 00:00:00 JUAN CARLOS [id number] [facility] [id number] [place] as [phone] [address] 2021-04-18 2021-04-18 Letter CRISTY Diaz [id number] [facility] 00:00:00 00:00:00 (Out) Blessing RANGEL [id number] it y of [facility] [id number] [place] as [phone] [address] 2021-04-17 2021-04-17 Laboratory Only, Ang Db Test [place] 1.2.8 [id number] [id number] [facility] 09:37:59 09:52:59 Only Brett, [employer] [id number] ity of [place] [id number] Blayne as Rocael?Blea [phone] [address] Medical [facility] 2021-04-17 2021-04-17 Orders Doctor CRISTY [id number] [facility] 00:00:00 00:00:00 Only UnassignedJUAN CARLOS [id number] ity of [place] [facility] [id number] [place] as [phone] [address] Results This patient has no known results.
--- NOTE | 2021-04-22 19:22 | RAD REPORT ---
EXAM DESCRIPTION: RAD - Chest Pa And Lat (2 Views) - 04/22/2021 7:01 pm CLINICAL HISTORY: CONGESTION Chest pain. COMPARISON: Chest Pa And Lat (2 Views) dated 04/06/2020; Chest Single View dated 03/05/2018 FINDINGS: Interstitial markings are mildly prominent which may indicate viral infection or bronchiti s. The heart is upper limit of normal in size. No displaced fractures.
--- NOTE | 2021-04-22 20:08 | ER ---
Nurse's Notes [facility] Name: Saloni Reyna Age: 60 yrs Sex: Female : 1960 Arrival Date: 04/22/2021 Time: 17:15 Bed Waiting Private MD: Zach Luna B Diagnosis: Coronavirus infection, unspecified Presentation: 04/22 17:25 Chief complaint: Patient states: SOB and chest congestion continues. Covid positive for ll1 9 days. Coronavirus screen: Vaccine status: Patient reports being unvaccinated. Client denies travel out of the [place] in the last 14 days. congestion, cough unrelated to allergies, Client presents with at least one sign or symptom that may indicate coronavirus-19. Standard/surgical mask placed on the client. Ebola Screen: Patient denies travel to an Ebola-affected area in the 21 days before illness onset. Initial Sepsis Screen: Does the patient meet any 2 criteria? HR > 90 bpm. No. Patient's initial sepsis screen is negative. Does the patient have a suspected source of infection? Yes: Productive cough/pneumonia. Risk Assessment: Do you want to hurt yourself or someone else? Patient reports no desire to harm self or others. Onset of symptoms was April 07, 2021. 17:25 Method Of Arrival: Ambulatory ll1 17:25 Acuity: GREGOR 4 ll1 Historical: - Allergies: 17:28 No Known Allergies; ll1 - PMHx: 17:28 Hypertension; ll1 - PSHx: 17:28 None; ll1 - Immunization history:: Client reports having NOT received the Covid vaccine. Flu vaccine status is unknown. - Social history:: Smoking status: Patient denies any tobacco usage or history of. Vital Signs: 17:25 BP 148 / 84; Pulse 95; Resp 18; Temp 99.8; Pulse Ox 98% ; Weight 57.15 kg; Height 5 ft. ll1 4 in. (162.56 cm); Pain 4/10; 17:25 Body Mass Index 21.63 (57.15 kg, 162.56 cm) ll1 ED Course: 17:15 Patient arrived in ED. as 17:15 Zach Luna MD is Private Physician. as 17:16 Yasmin Marcos FNP-C is [facility]. 17:16 Gabe Hammonds MD is Attending Physician. kb 17:28 Triage completed. ll1 17:29 Arm band placed on. ll1 19:01 Chest Pa And Lat (2 Views) XRAY In Process Unspecified. EDMS Administered Medications: No medications were administered Outcome: 20:08 Discharge ordered by . kb 21:05 Patient left the ED. kb Signatures: Dispatcher [employer] EDMS Yasmin Marcos, SYLVAIN-Song NARAYAN-Patricia Hong as [place] Pedro RN RN ll1 Corrections: (The following items were deleted from the chart) 17:29 17:25 BP 133 / 103; Pulse 95bpm; Resp 18bpm; Pulse Ox 98%; Temp 99.8F; 57.15 kg; Height ll1 5 ft. 4 in.; BMI: 21.6; Pain 4/10; ll1
--- NOTE | 2021-04-22 20:08 | EDPHYS ---
Physician Documentation [facility] Name: Saloni Reyna Age: 60 yrs Sex: Female : 1960 Arrival Date: 04/22/2021 Time: 17:15 Bed Waiting Private MD: Zach Luna B ED Physician Gabe Hammonds HPI: 04/22 20:19 This 60 yrs old Female presents to ER via Ambulatory with complaints of kb Shortness Of Breath - covid+. 20:19 The patient or guardian reports cough, that is intermittent, described as mild. Onset: kb The symptoms/episode began/occurred 12 day(s) ago. Severity of symptoms: At their worst the symptoms were mild, moderate, in the emergency department the symptoms have improved. Modifying factors: The symptoms are alleviated by nothing, the symptoms are aggravated by nothing. Associated signs and symptoms: The patient has no apparent associated signs or symptoms. The patient has not experienced similar symptoms in the past. The patient has not recently seen a physician. Pt states she was diagnosed with Covid 12 days ago and still has chest congestion so she wants to make sure there is nothing in her lungs. Historical: - Allergies: 17:28 No Known Allergies; ll1 - PMHx: 17:28 Hypertension; ll1 - PSHx: 17:28 None; ll1 - Immunization history:: Client reports having NOT received the Covid vaccine. Flu vaccine status is unknown. - Social history:: Smoking status: Patient denies any tobacco usage or history of. ROS: 20:19 Constitutional: Negative for fever, chills, and weight loss. kb 20:19 Cardiovascular: Positive for chest congestion. 20:19 Respiratory: Positive for cough. 20:19 All other systems are negative. Exam: 20:19 Constitutional: This is a well developed, well nourished patient who is awake, alert, kb and in no acute distress. Head/Face: Normocephalic, atraumatic. ENT: Moist Mucous membranes Cardiovascular: Regular rate and rhythm with a normal S1 and S2. No gallops, murmurs, or rubs. No pulse deficits. Respiratory: Respirations even and unlabored. No increased work of breathing, no retractions or nasal flaring. Skin: Warm, dry with normal turgor. Normal color. MS/ Extremity: Pulses equal, no cyanosis. Neurovascular intact. Full, normal range of motion. Neuro: Awake and alert, GCS 15, oriented to person, place, time, and situation. Moves all extremities. Normal gait. Psych: Awake, alert, with orientation to person, place and time. Behavior, mood, and affect are within normal limits. Vital Signs: 17:25 BP 148 / 84; Pulse 95; Resp 18; Temp 99.8; Pulse Ox 98% ; Weight 57.15 kg; Height 5 ft. ll1 4 in. (162.56 cm); Pain 4/10; 17:25 Body Mass Index 21.63 (57.15 kg, 162.56 cm) ll1 MDM: 17:34 Patient medically screened. kb 20:07 Data reviewed: vital signs, nurses notes. Data interpreted: Pulse oximetry: on room air kb is 98 %. Interpretation: normal. Counseling: I had a detailed discussion with the patient and/or guardian regarding: the historical points, exam findings, and any diagnostic results supporting the discharge/admit diagnosis, radiology results, the need for outpatient follow up, a family practitioner, to return to the emergency department if symptoms worsen or persist or if there are any questions or concerns that arise at home. 04/22 17:35 Order name: Chest Pa And Lat (2 Views) XRAY; Complete Time: 19:24 kb Administered Medications: No medications were administered Disposition: 04/23 08:47 Co-signature as Attending Physician, Gabe Hammonds MD I agree with the assessment and leslie plan of care. Disposition Summary: 04/22/21 20:08 Discharge Ordered Location: Home kb Condition: Stable kb Diagnosis - Coronavirus infection, unspecified kb Followup: kb - With: Emergency Department - When: As needed - Reason: Worsening of condition Followup: kb - With: Private Physician - When: 2 - 3 days - Reason: Recheck today's complaints, Continuance of care, Re-evaluation by your physician Discharge Instructions: - Discharge Summary Sheet kb - Viral Respiratory Infection, [id number]-[id number] kb - COVID-19 kb - COVID-19 Frequently Asked Questions kb - 10 Things You Can Do to Manage Your COVID-19 Symptoms at Home - [facility] kb Forms: - Medication Reconciliation Form kb - Thank You Letter kb - Antibiotic Education kb - Prescription Opioid Use kb Signatures: Dispatcher [employer] EDYasmin Renee, DESIZING PAD OPERATOR-C DESIZING PAD OPERATOR-Ckb Gabe Hammonds MD MD cha Lewis, Lynsay, RN RN ll1
[2021-04-22 21:17] VITALS: BP 148/84; TEMP 99.8; O2SAT 98
== END 2021-04-22 21:05 | disposition home or self-care (01) ==
LOC: ER 17:09
DX: U07.1 COVID-19 (principal); I10 Essential (primary) hypertension
CPT/HCPCS: 71046; 99282

== ENCOUNTER 2023-06-03 13:36 | Emergency (ER) | payer BC ==
--- OUTSIDE RECORDS SUMMARY | 2023-06-03 13:38 | XMS REPORT | Continuity of Care Document ---
:1960 Author Organization [facility] t Address [address] [place] [address] [place] [id number] Care Team Providers Name Role Phone Zach Luna Primary Care Physician Mirna Menon Cardiology Attending Clinician Unavailable Shannan Streeter Attending Clinician Unknown, Attending Attending Clinician Unavailable SHANNAN CHIN Attending Clinician Unavailable Doctor Unassigned, [place] Attending Clinician Unavailable JANAY VIDAL Attending Clinician Unavailable Harsha Cárdenas Attending Clinician Unavailable Cha Patrick MA Attending Clinician Unavailable POPEYE ESPINOZA Attending Clinician Unavailable Jose GOLDEN, Shira Attending Clinician Unavailable Blessing Diaz RN Attending Clinician Unavailable Only, Ang Db Test Attending Clinician Unavailable Eduarda Moreno Attending Clinician EDUARDA BRIDGES Attending Clinician Unavailable Zach Luna Admitting Clinician Unavailable Harsha Cárdenas Admitting Clinician Unavailable Payers Payer Name Policy Type Policy Number Effective Date Expiration Date S zac [id number] PPO AND [id number] 2020 00:00:00 OUT OF STATE Problems Condition Condition Condition Status Onset Resolution Last Treating Co mments Source Name Details Category Date Date Treatment Clinician Date No known No known Disease Unive rs active active ity of problems problems [facility] Allergies, Adverse Reactions, Alerts Allergy Allergy Status Severity Reaction(s) Onset Inactive Treating Comm ents Source Name Type Date Date Clinician No Known DA Active U [facility] 1-06 [place] s 00:00: d 00 [facility] No Known DA Active U [facility] Allergie 6-10 [place] 00:[place]: C[place] 00 [facility] NO KNOWN Drug Active Univers ALLERGIE Class ity of S [facility] Social History Social Habit Start Date Stop Date Quantity Comments Source Exposure to 2022-07-01 2022-07-[address] [facility]00 [facility] (event) [place] Tobacco use and 2022-07-11 2022-07-11 Smokeless tobacco Un iversity of exposure 00:00:00 00:00:00 non-user [facility] Alcohol intake 2022-07-11 2022-07-11 Current drinker Unive rsity of 00:00:00 00:00:00 of alcohol [facility] (finding) [place] Sex Ass[birth year] At [birth year] Universit y of 00:00:00 00:00:00 [facility] Smoking Status Start Date Stop Date Source Tobacco smoking consumption Univ ersity of [facility] unknown [place] Never smoked tobacco [facility] Medications Ordered Filled Start Stop Current Ordering Indication Dosage Frequency Signature Comments Components Source Medication Medication Date Date Medication? Clinician (SIG) Name Name ascorbic 2021-08 Yes 500mg Take 500 Univ ers acid, 1-25 mg by ity of vitamin C, 10:52: mouth. [place] (VITAMIN C) [address] [place] [address] 500 mg [place] tablet Zinc 50 mg 2021-08 Yes 50mg Take 50 mg U nivers Tab 1-25 by mouth ity of 10:52: daily. [address] mecobalamin 2021-08 Yes 1{tbl} Take 1 Un ray[place] (B12 ACTIVE 1-25 tablet by ity of ORAL) 10:52: mouth. [address] BABY 2021-08 Yes 1{tbl} Take 1 Univers ASPIRIN 1-25 tablet by ity of ORAL 10:52: mouth [place] [id number] daily. [facility] Branch Magnesium 2021-08 Yes 1{tbl} Take 1 Univ ers Oxide 500 1-25 tablet by ity o f mg Tab 10:52: mouth. [place] 21 Medical Branch benzonatate 2021-08 Yes [id number] 200mg Take 1 Univers 200 mg 1-25 capsule by ity of capsule 00:00: mouth 3 [place] 00 (three) Medical times Branch daily as needed for Cough. telmisartan 2021-08 Yes 80mg Take 80 mg Univers 80 mg 08-18 by mouth ity of tablet 00:00: in the [place] 00 morning. Medical Branch esomeprazol 2021-08 Yes 40mg Take 40 mg Univers e 40 mg 08-17 by mouth ity of capsule 00:00: in the [place] 00 morning. Medical Branch rosuvastati 2021-08 Yes 20mg Take 20 mg Univers n 20 mg 0-31 by mouth ity of tablet 00:00: every [place] morning. Medical Branch BRILINTA 90 2021-08 Yes 90mg Take 90 mg Univers mg tablet 0-31 by mouth 2 ity of 00:00: (two) [place] 00 times Medical daily. Branch DULoxetine 2021-08 Yes 30mg Take 30 mg U nivers 30 mg 0-31 by mouth ity of capsule 00:00: in the [place] morning. Medical Branch Vital Signs Vital Name Observation Time Observation Value Comments Source Systolic blood 2022-07-11 16:54:00 135 mm[Hg] Univer sity of pressure [facility] Diastolic blood 2022-07-11 16:54:00 81 mm[Hg] Unive rsity of pressure [facility] Heart rate 2022-07-11 16:53:00 53 /min [facility] Body temperature 2022-07-11 16:53:00 37 Christi [facility] Respiratory rate 2022-07-11 16:53:00 18 /min [facility] Body height 2022-07-11 16:53:00 160 cm [facility] Body weight 2022-07-11 16:53:00 61.054 kg [facility] BMI 2022-07-11 16:53:00 23.84 kg/m2 [facility] Oxygen saturation in 2022-07-11 16:53:00 100 /min [facility] blood by [facility] Pulse oximetry Branch Procedures Procedure Date / Time Performing Clinician Source Performed POCT SARS-COV-2 ANTIGEN 2022-07-11 17:20:00 Shannan Chin Un iversity of [place] (BINAX NOW) Medical Branch ASSIGNMENT OF BENEFITS 2022-07-11 16:43:48 Doctor Unassigned, No [facility] Name Medical Branch EXTERNAL PROVIDER 2021-08-20 06:01:00 [facility] RECORDS Name Medical Branch AUTHORIZATION FOR 2021-06-24 06:01:00 Doctor Unassigned, No [facility] RELEASE OF PHI Name Medical Branch EXTERNAL MAMMOGRAM 2021-06-04 00:00:00 Doctor Unassigned, No [facility] Medical Branch Encounters Start End Encounter Admission Attending Care Care Encounter Source Date/Time Date/Time Type Type Clinicians Facility Department ID 2022-05-13 Outpatient [facility] [id number] [place] 11:16:46 [id number] [facility] 2022-08-23 2022-08-23 [id number] [facility] 07:39:00 07:39:00 Sali 94 [facility] 2022-07-11 2022-07-11 Urgent Shannan Chin [facility] [id number]. [id number] Univers 10:40:00 11:00:00 Care Unknown, Attending [facility] [id number] ity [facility] [id number] [place] ROCAEL?BLEA [phone] [address] MEDICAL OFFICE BUILDING 2022-07-11 2022-07-11 Outpatient R GIUSEPPE [facility] [id number] [facility] 10:40:00 10:40:00 SHANNAN urena o f [facility] 2022-07-11 2022-07-11 Orders Doctor MUNIZ [id number] Univers 00:00:00 00:00:00 Only Unassigned, JUAN CARLOS [id number] ity of [facility] [id number] [place] [phone] [place] [address] Branch 2022-06-05 2022-06-05 Outpatient MARCY, [facility] [id number] [place] 15:40:00 15:40:00 [facility] 2022-01-25 2022-01-26 Inpatient EL Avi, [facility] [id number] [facility] 04:38:00 13:41:00 Nioti 31 [facility] 2022-01-25 2022-01-26 Inpatient EL Beim, [facility] [id number] [facility] 04:38:00 13:41:00 Nioti [id number] [facility] 2021-08-28 2021-08-28 WILMA Zarate [id number] Univers 00:00:00 00:00:00 Management Cha COOK [id number] ity of [id number] [phone] [facility] 086 Branch 2021-08-20 2021-08-20 Orders Doctor CRISTY [id number] Univers 00:00:00 00:00:00 Only Unassigned, JUAN CARLOS [id number] ity of [place] [facility] [id number] [place] [phone] [facility] 009 Branch 2021-06-24 2021-06-24 Orders Doctor CRISTY [id number] Univers 00:00:00 00:00:00 Only Unassigned, JUAN CARLOS [id number] ity of [place] [facility] [id number] [place] [id number] [facility] 009 [place] 2021-04-30 2021-04-30 Outpatient Letty ESPINOZA [facility] [id number] Univers 15:45:00 15:45:00 POPEYE ity of [facility] 2021-04-19 2021-04-19 Telephone Shira Garcia [id number] Univers 00:00:00 00:00:00 JUAN CARLOS [id number] it y of HOSPITAL [id number] [place] [phone] [facility] 019 Branch 2021-04-18 2021-04-18 Letter CRISTY Diaz [id number] Univers 00:00:00 00:00:00 (Out) Blessing RANGEL [id number] it y of [facility] [id number] [place] [phone] [address] 2021-04-17 2021-04-17 Laboratory Only, Ang Db Test [facility] 1.2.8 [id number] Univers 09:37:59 09:52:59 Only Eduarda Bridges [facility] [id number] ity of [place] [id number] [place] Rocael?Blea [phone] [address] Medical Office Building 2021-04-17 2021-04-17 Outpatient R YULIANA [facility] [id number] Univers 09:30:00 09:30:00 [facility] Results Test Description Test Time Test Comments Results Result Comments Source COMPREHENSIVE METABOLIC PANEL 2022-08-23 10:22:00 Test Item Value Reference Range Interpretation Comme nts SODIUM (test code = NA) 140 mmol/L 134-147 N POTASSIUM (test code = K) 4.0 mmol/L 3.4-5.0 N CHLORIDE (test code = CL) 105 mmol/L 100-108 N CARBON DIOXIDE (test code 32 mmol/L 21-32 N = CO2) ANION GAP (test code = 3.0 GAP calc 4.0-15.0 L GAP) GLUCOSE (test code = GLU) 94 MG/DL 70-110 N BLOOD UREA NITROGEN (test 15 MG/DL 7-18 N code = BUN) GLOMERULAR FILTRATION >=60 max estimate >60 T he Glomerular Filtration RATE (test code = GFR) estGFR Rate is a calculated parameterbased on serum Creatinine, pat ient age and sex. GFR values less than 60 mL/min/1.73 squ are meters are indicative ofChronic Kidney Disease. Values less than 15 mL/min/ 1.73square meters indicate Kidney failure. The ca lculation forGFR is based on the CKD-EPI (2020) calculation. This formulais race indifferent and is the recommended for yung for GFRby the [facility] for Adults.The GFR will not ca lculate if the sex is unkn own or if thepatient's ag e is <18 years. CREATININE (test code = 0.8 MG/DL 0.6-1.0 N CREAT) TOTAL PROTEIN (test code 7.4 G/DL 6.4-8.2 N = PROT) ALBUMIN (test code = ALB) 4.0 G/DL 3.4-5.0 N GLOBULIN (test code = 3.4 GM/dL GLOB) ALBUMIN/GLOBULIN RATIO 1.2 RATIO 1.2-2.2 N (test code = A/G) CALCIUM (test code = CA) 9.7 MG/DL 8.5-10.1 N BILIRUBIN TOTAL (test 0.70 MG/DL 0.2-1.2 N code = BILT) SGOT/AST (test code = 23 Unit/L 15-37 N AST) SGPT/ALT (test code = 40 Unit/L 12-78 N ALT) ALKALINE PHOSPHATASE 105 Unit/L 45-117 N TOTAL (test code = ALKP) LIPID PROFILE (CORONARY RISK)2022-08-23 10:22:00 Test Item Value Reference Range Interpretation Comments TRIGLYCERIDES (test 72 MG/DL 0-150 N code = TRIG) CHOLESTEROL (test 165 MG/DL 133-200 N code = CHOL) CHOLESTEROL/HDL 1.96 RATIO See_Comment RISK ASSOCIA ROSEMARY WITH RATIO (test code = CHOL/HDL RATIOS: RISK CHOLHDL) MALE FEMALE1/2 AVERAGE 3.43 3.27AVERAG E 4.97 4.442X AVERAGE 9.55 7.053X AVERAGE 23.39 11.04 NOTE THAT THE REFERENCE VALUE IS RELATED TO RISK LEVELS ASRECOMMENDED B Y THE [facility] . [Automated mess age] The system which nerated this result tra nsmitted reference range : 0-. The reference range was not used to interpr et this result as normal/abnormal . HDL CHOLESTEROL 84 MG/DL 40-59 H (test code = HDL) NON-HDL CHOLESTEROL 81 mg/dL <130 (test code = NHDL) LIPOPROTEIN LDL 65 MG/DL 0-129 N <100 OPTIMAL 100 - 129 (test code = LDL) NEAR OPTIM AL/ABOVE [id number] - 15 9 [id number] - 189 HIGH>OR= 190 VE RY HIGHNOTE THAT G UIDELINES ARE PROVIDED BY NATIONAL CHOLESTEROLEDUC ATION PROGRAM ADULT T REATMENT PANEL III LDL/HDL (test code 0.77 Ratio See_Comment L [Automat ed message] The = LDL/HDL) system which nerated this result tra nsmitted reference range : 1.48-3.22 Avg. The reference range was not used to interpr et this result as normal/abnormal . [id number] 10:22:00 Test Item Value Reference Range Interpretation Comments MAGNESIUM (test code = MAG) 2.1 MG/DL 1.8-2.4 N COVID 19 INHOUSE [id number] 09:45:00 Test Item Value Reference Range Interpretation Comments COVID 19 INHOUSE AG NEGATIVE Negative Per manu facturer, (test code = negative result s should [id number]) be treated aspr esumptive and, if inconsi stent with clinical signs andsymptoms or necessary for patient man agement, should betested with an alternative mol ecular assay. Negative resultsdo not preclude SA RS-CoV-2 infection and s hould not be usedas the s ole basis for patient man agement decisions. Nega tive results should be considered in t he context of apatient's r ecent exposures, hist ory, presence of cli nicalsigns and symptoms co nsistent with COVID-19. CBC W/AUTO [id number] 09:24:00 Test Item Value Reference Range Interpretation Comments WHITE BLOOD CELL (test code = 5.9 K/mm3 3.5-11.0 N WBC) RED BLOOD CELL (test code = 4.74 M/mm3 4.70-6.10 N RBC) HEMOGLOBIN (test code = HGB) 13.8 G/DL 10.4-14.9 N HEMATOCRIT (test code = HCT) 42.4 % 31.5-44.1 N MEAN CELL VOLUME (test code = 89.5 Fl 84.5-98.6 N MCV) MEAN CELL HGB (test code = MCH) 29.1 pg 27.0-34.2 N MEAN CELL HGB CONCETRATION 32.5 G/DL 31.5-34.0 N (test code = MCHC) RED CELL DISTRIBUTION WIDTH 14.5 SD 11.5-14.5 N (test code = RDW) PLATELET COUNT (test code = 213 K/mm3 150-450 N PLT) MEAN PLATELET VOLUME (test code 11.20 fL 7.0-10.5 H = MPV) NEUTROPHIL % (test code = NT%) 62.0 % 40-76 N IMMATURE GRANULOCYTE % (test 0.2 % 0.0-5.0 N code = IG%) LYMPHOCYTE % (test code = LY%) 22.7 % 20.5-51.1 N MONOCYTE % (test code = MO%) 10.2 % 1.7-9.3 H EOSINOPHIL % (test code = EO%) 4.1 % 0.0-6.0 N BASOPHIL % (test code = BA%) 0.8 % 0.0-2.0 N NUCLEATED RBC % (test code = 0.0 /100WBC% 0.0-1.0 N NRBC%) NEUTROPHIL # (test code = NT#) 3.7 K/mm3 1.8-7.6 N IMMATURE GRANULOCYTE # (test 0.01 x10 3/uL 0.00-0.03 N code = IG#) LYMPHOCYTE # (test code = LY#) 1.3 K/mm3 0.6-3.2 N MONOCYTE # (test code = MO#) 0.6 K/mm3 0.3-1.1 N EOSINOPHIL # (test code = EO#) 0.2 K/mm3 0.0-0.4 N BASOPHIL # (test code = BA#) 0.1 K/mm3 0.0-0.1 N NUCLEATED RBC # (test code = 0.0 K/mm3 0.0-0.1 N NRBC#) MANUAL DIFF REQUIRED (test code NO DIFF/SCN CRITERIA = MDIFF) PROTHROMBIN [id number] 09:24:00 Test Item Value Reference Range Interpretation Comments PT PATIENT (test 11.0 SECONDS 9.3-12.9 N code = PTP) INTERNATIONAL NORMAL 0.99 INR Unit 0.8-1.2 N TARGE T INR BY RATIO (test code = INDICATIO N Indication INR) INR1. Prophylax is of venous thrombos is 2.0 - 3.0 (orthoped ic surgery), Proph ylaxis of venous throm bosis (other than hig h-risk surgery), Treat ment of Deep Vein Thrombosis/Pulm onary Embolism, Preve ntion of systemic emb olism - Tissue heart va lves, Acute Myocardia l Infarction (to prevent systemic emboli sm), Valvular heart disease, Acute Myocardial Infa rction (to prevent sys temic embolism), Valv ular heart disease, Atrial Fibrillation, Bileaflet mecha nical valve in aortic position.2. Mec hanical prosthetic valv es (high risk), 2. 5 - 3.5 Presence of Lup us Anticoagulant o r Antiphospholipi d Antibodies, Pre vention of systemic emb olism - Acute Myocardia l Infarction (to prevent recurrent infar ct). THROMBOPLASTIN TIME [id number] 09:24:00 Test Item Value Reference Range Interpretation Comments THROMBOPLASTIN TIME PARTIAL 31.8 SECONDS 26-35 N (test code = PTT) POCT SARS-COV-2 ANTIGEN (BINAX NOW)2022-07-11 17:20:00 Test Item Value Reference Range Interpretation Comments POCT SARS-COV-2 ANTIGEN (test code = Positive Not Detected A 22848-1) On board controls acceptable with C Yes Line (test code = 3574) Lab Interpretation (test code = Abnormal 68859-2) [facility] W/AUTO [id number] 06:27:00 Test Item Value Reference Range Interpretation Comments WHITE BLOOD CELL (test code = 8.9 K/MM3 3.8-9.8 N WBC) RED BLOOD CELL (test code = 4.01 M/MM3 3.58-4.97 RBC) HEMOGLOBIN (test code = HGB) 12.0 G/DL 11.2-14.9 N HEMATOCRIT (test code = HCT) 37.0 % 33.2-43.5 MEAN CELL VOLUME (test code = 92 fL 80.7-99.1 N MCV) MEAN CELL HGB (test code = MCH) 29.9 pg 27.0-34.1 N MEAN CELL HGB CONCETRATION 32.4 % 32.2-35.7 N (test code = MCHC) RED CELL DISTRIBUTION WIDTH 13.6 % 12.1-15.2 N (test code = RDW) PLATELET COUNT (test code = 185 K/MM3 129-368 N PLT) MEAN PLATELET VOLUME (test code 10.6 fl 7.4-10.4 H = MPV) NEUTROPHIL % (test code = NT%) 71.3 % 43-75 N IMMATURE GRANULOCYTE % (test 0.2 % 0.0-2.0 N code = IG%) LYMPHOCYTE % (test code = LY%) 15.9 % 14-44 N MONOCYTE % (test code = MO%) 10.5 % 4-13 N EOSINOPHIL % (test code = EO%) 1.6 % 0-6 N BASOPHIL % (test code = BA%) 0.5 % 0-2 N NUCLEATED RBC % (test code = 0.0 % 0-1.0 N NRBC%) NEUTROPHIL # (test code = NT#) 6.34 K/mm3 2.0-7.6 N IMMATURE GRANULOCYTE # (test 0.02 x10 3/uL 0-0.03 N code = IG#) LYMPHOCYTE # (test code = LY#) 1.41 K/mm3 1.0-3.8 N MONOCYTE # (test code = MO#) 0.93 K/mm3 0.1-0.8 H EOSINOPHIL # (test code = EO#) 0.14 K/mm3 0.0-0.2 N BASOPHIL # (test code = BA#) 0.04 K/mm3 0.0-0.2 N NUCLEATED RBC # (test code = 0.00 K/mm3 0.0-0.1 N NRBC#) BASIC METABOLIC [id number] 06:26:00 Test Item Value Reference Range Interpretation Comments SODIUM (test code = 137 MMOL/L 137-145 N NA) POTASSIUM (test code = 4.2 MMOL/L 3.5-5.1 N K) CHLORIDE (test code = 107 MMOL/L 98-107 N CL) CARBON DIOXIDE (test 28 MMOL/L 22-30 N code = CO2) GLUCOSE (test code = 91 MG/DL 74-106 N GLU) BLOOD UREA NITROGEN 10 MG/DL 7-17 N (test code = BUN) GLOMERULAR FILTRATION > 60 Report ing units: RATE (test code = GFR) ml/mi n/1.73 m2 (Modified MDRD Formula)Referen ce Range: > or = 6 0 ml/min/1.73 m2 CREATININE (test code 0.70 MG/DL 0.52-1.04 N = CREAT) CALCIUM (test code = 8.7 MG/DL 8.4-10.2 N CA) [id number] 06:44:00 Test Item Value Reference Range Interpretation Comments ACT-ISTAT (test code = ACTI) 265 SEC 74-137 H BASIC METABOLIC [id number] 06:14:00 Test Item Value Reference Range Interpretation Comments SODIUM (test code = 138 MMOL/L 137-145 N NA) POTASSIUM (test code = 3.9 MMOL/L 3.5-5.1 N K) CHLORIDE (test code = 101 MMOL/L 98-107 N CL) CARBON DIOXIDE (test 31 MMOL/L 22-30 H code = CO2) GLUCOSE (test code = 90 MG/DL 74-106 N GLU) BLOOD UREA NITROGEN 12 MG/DL 7-17 N (test code = BUN) GLOMERULAR FILTRATION > 60 Report ing units: RATE (test code = GFR) ml/mi n/1.73 m2 (Modified MDRD Formula)Referen ce Range: > or = 6 0 ml/min/1.73 m2 CREATININE (test code 0.70 MG/DL 0.52-1.04 N = CREAT) CALCIUM (test code = 9.5 MG/DL 8.4-10.2 N CA) LIPID PROFILE (CORONARY RISK)2022-01-25 06:14:00 Test Item Value Reference Range Interpretation Comments TRIGLYCERIDES (test 71 MG/DL 150-199 L TRIGLYCE RIDES code = TRIG) REFERENCE RANGE:Normal: < 150 mg/dLBorderline High: 150-199 mg/dLHi gh: 200-499 mg/dLVe ry High: >=500 mg/ dL CHOLESTEROL (test code 185 MG/DL <200 = CHOL) HDL CHOLESTEROL (test 77 MG/DL 40-59 H code = HDL) LIPOPROTEIN LDL (test 74 MG/DL 0-99 N OPTIM AL.........<100 code = LDL) mg/dLNEAR OPTIMAL/ABOVE OPTIMAL........ .100-12 9 mg/dL BORDERL INE HIGH.........13 0-159 mg/dL HIGH.........16 0-189 mg/dL VERY HIGH.........>/ = 190 mg/dL [id number] 06:14:00 Test Item Value Reference Range Interpretation Comments MAGNESIUM (test code = MAG) 1.9 MG/DL 1.6-2.3 N PROTHROMBIN [id number] 05:33:00 Test Item Value Reference Range Interpretation Comments PROTHROMBIN TIME 10.4 SECONDS 9.4-12.7 N PATIENT (test code = PTP) INTERNATIONAL NORMAL 0.9 0.86-1.14 N The INR is to be RATIO (test code = used only for INR) monitoring oral anticoagulantth erap y. INDICATION I NR VALUE ---- ---- ---- -------1. Prophylaxis, de ep venous thrombos is, including high risk surgery. 2.0 - 3.0 2. Prophylaxis, deep venous thrombosis, hip surgery, treatm ent for deep venous thrombosis or pulmonary prevention of systemic emboli sm in patients wit h valvular heart disease, atrial fibrillation, tissue heart va lve, or acute myocar dial infarction. 2.0 - 3.0 3. [employer] al prosthesis hear t valves, recurre nt systemic emboli sm. 3.0 - 4.5 PTT [id number] 05:33:00 Test Item Value Reference Range Interpretation Comments PTT ACTIVATED (test code = APTT) 34.0 SECONDS 26.2-35.4 N CBC W/AUTO [id number] 05:28:00 Test Item Value Reference Range Interpretation Comments WHITE BLOOD CELL (test code = 5.7 K/MM3 3.8-9.8 N WBC) RED BLOOD CELL (test code = 4.95 M/MM3 3.58-4.97 N RBC) HEMOGLOBIN (test code = HGB) 14.7 G/DL 11.2-14.9 N HEMATOCRIT (test code = HCT) 45.5 % 33.2-43.5 H MEAN CELL VOLUME (test code = 92 fL 80.7-99.1 N MCV) MEAN CELL HGB (test code = MCH) 29.7 pg 27.0-34.1 N MEAN CELL HGB CONCETRATION 32.3 % 32.2-35.7 N (test code = MCHC) RED CELL DISTRIBUTION WIDTH 13.5 % 12.1-15.2 N (test code = RDW) PLATELET COUNT (test code = 226 K/MM3 129-368 N PLT) MEAN PLATELET VOLUME (test code 10.9 fl 7.4-10.4 H = MPV) NEUTROPHIL % (test code = NT%) 50.0 % 43-75 N IMMATURE GRANULOCYTE % (test 0.3 % 0.0-2.0 N code = IG%) LYMPHOCYTE % (test code = LY%) 31.2 % 14-44 N MONOCYTE % (test code = MO%) 12.2 % 4-13 N EOSINOPHIL % (test code = EO%) 5.1 % 0-6 N BASOPHIL % (test code = BA%) 1.2 % 0-2 N NUCLEATED RBC % (test code = 0.0 % 0-1.0 N NRBC%) NEUTROPHIL # (test code = NT#) 2.87 K/mm3 2.0-7.6 N IMMATURE GRANULOCYTE # (test 0.02 x10 3/uL 0-0.03 N code = IG#) LYMPHOCYTE # (test code = LY#) 1.79 K/mm3 1.0-3.8 N MONOCYTE # (test code = MO#) 0.70 K/mm3 0.1-0.8 N EOSINOPHIL # (test code = EO#) 0.29 K/mm3 0.0-0.2 H BASOPHIL # (test code = BA#) 0.07 K/mm3 0.0-0.2 N NUCLEATED RBC # (test code = 0.00 K/mm3 0.0-0.1 N NRBC#) COVID 19 Asymptomatic IH [id number] 05:16:00 Test Item Value Reference Range Interpretation Comments COVID 19 NEGATIVE Negative "Negative resul ts from Asymptomatic IH AG patients with symptom (test code = onset beyondfiv e days, COVNONPUIAG) should be treat ed as presumptive, andconfirmation with a molecular assay , if necessary forpa tient management may be performed. Nega tive results do notr ule out COVID-19 and sh ould not be used as the sole basisfor treatm ent or patient managem ent decisions, includinginfect ion control decisio ns. Negative result s should beconsidered in the context of a pa tients recent exposure s,history, and the presenc e of clinical signs and symptomsconsist ent with COVID-19.This t est detects both vi able andnon-viable S ARS-CoV and SARS CoV-2. Test performance dep endson the amount of virus (antigen) in the sample."
[2023-06-03 14:15] LABS: Absolute Lymphocytes (CBC) 1.5 K/uL (0.7-4.9); Lymphocytes % 24.9 % (15.3-44.8); MCV 89.7 fL (80-100); MPV 8.9 fL (7.6-11.3); Platelets 220 thou/uL (152-406); RBC Red Blood Cell Count 4.45 M/uL (3.86-4.86)
[2023-06-03] MEDS ORDERED: NITROGLYCERIN 0.4 MG/TAB SL ONE (14:20)
[2023-06-03 14:35] LABS: Albumin 3.6 g/dL (3.4-5.0); Bilirubin Direct 0.1 mg/dL (0-0.2); Bilirubin Indirect, Calculated 0.2 mg/dL (0.2-0.8); Bilirubin Total 0.3 mg/dL (0.2-1.0); Magnesium 2.1 mg/dL (1.6-2.4); Troponin High Sensitivity 7.4 pg/mL (<58.9)
--- NOTE | 2023-06-03 14:41 | RAD REPORT ---
EXAM DESCRIPTION: RADChest Single View06/03/2023 2:15 pm CLINICAL HISTORY: CHEST PAIN COMPARISON: Abdomen 1 View (KUB) dated 05/08/2022; Chest Pa And Lat (2 Views) dated 04/22/2021; Chest P a And Lat (2 Views) dated 04/06/2020; Chest Single View dated 03/05/2018 TECHNIQUE: Portable AP view of the chest. FINDINGS: The lungs are clear. No pneumothorax or effusion. The cardiomediastinal contours are unre markable. IMPRESSION: No acute cardiopulmonary process.
--- NOTE | 2023-06-03 15:55 | ER ---
Nurse's Notes [facility] Name: Saloni Reyna Age: 63 yrs Sex: Female : 1960 Arrival Date: 06/03/2023 Time: 13:36 Bed 8 Private MD: Diagnosis: Chest pain, unspecified Presentation: 06/03 13:46 Chief complaint: EMS states: Chest pain since 10am today. No shortness of breath, hx of nj1 cardiac stents. Given 324mg ASA, 0.4mg nitro x2. Pain went from a 7 to a 2. BS 127. 13:46 Coronavirus screen: Vaccine status: Patient reports being unvaccinated. Ebola Screen: nj Patient denies travel to an Ebola-affected area in the 21 days before illness onset. Initial Sepsis Screen: Does the patient meet any 2 criteria? No. Patient's initial sepsis screen is negative. Does the patient have a suspected source of infection? No. Patient's initial sepsis screen is negative. Risk Assessment: Do you want to hurt yourself or someone else? Patient reports no desire to harm self or others. Onset of symptoms was June 03, 2023 at 14:00. 13:46 Method Of Arrival: EMS: [facility] nj 13:46 Acuity: GREGOR 2 nj 13:46 Care prior to arrival: Medication(s) given: ASA, 81 mg, x 4, Nitroglycerin, 0.4 mg SL x nj1 2, IV initiated. 22 GA, in the left antecubital area, Glucose check: 127 Oxygen administered. via nasal cannula. Historical: - Allergies: 14:21 No Known Allergies; nj1 - PMHx: 14:21 Hypertension; Coronary atherosclerosis; Hypercholesterolemia; nj1 - PSHx: 14:21 Stented artery; Coronary Angioplasty; nj1 - Immunization history:: Client reports having NOT received the Covid vaccine. - Social history:: Smoking status: Patient denies any tobacco usage or history of. - Family history:: not pertinent. Screenin:29 [facility] ED Fall Risk Assessment (Adult) Score/Fall Risk Level 0 - 2 = Low Risk [facility] Oriented to surroundings, Maintained a safe environment, Hourly rounding (assess needs \T\ fall precautionary measures) done. Abuse screen: Denies threats or abuse. Denies injuries from another. Nutritional screening: No deficits noted. Tuberculosis screening: No symptoms or risk factors identified. Assessment: 13:50 General: Appears in no apparent distress. comfortable, Behavior is calm, cooperative, nj1 appropriate for age. 13:50 Pain: Complains of pain in mid-sternal area Pain currently is 2 out of 10 on a pain nj1 scale. Neuro: Level of Consciousness is awake, alert, obeys commands, Oriented to person, place, time, situation. Cardiovascular: Patient's skin is warm and dry. Rhythm is regular. Respiratory: Airway is patent Respiratory effort is even, unlabored. 14:25 Reassessment: Patient appears in no apparent distress at this time. Patient and/or nj1 family updated on plan of care and expected duration. Pain level reassessed. Patient is alert, oriented x 3, equal unlabored respirations, skin warm/dry/pink. Patient states feeling better. Patient states symptoms have improved. Pain: Complains of pain in mid-sternal area Pain currently is 1 out of 10 on a pain scale. Vital Signs: 13:46 BP 167 / 92; Pulse 75; Resp 18; Temp 98.1(O); Pulse Ox 100% on R/A; Weight 58.97 kg; nj1 Height 5 ft. 4 in. ; Pain 2/10; 14:30 BP 145 / 84; Pulse 75; Resp 18; Pulse Ox 99% ; nj1 15:56 BP 150 / 83; Pulse 71; Resp 18; Pulse Ox 99% ; ko1 13:46 Body Mass Index 22.31 (58.97 kg, 162.56 cm) nj1 13:46 Pain Scale: Adult nj ED Course: 13:40 Patient arrived in ED. bd 13:40 Jesse Elder MD is Attending Physician. rt 13:52 EKG done, by ED staff, reviewed by Jesse Elder MD. em1 14:03 Zoe Dahl, RN is Primary Nurse. nj1 14:17 XRAY Chest (1 view) In Process Unspecified. EDMS 14:21 Triage completed. nj1 14:22 Arm band placed on. nj1 14:29 No provider procedures requiring assistance completed. nj1 14:29 Provided Education on: call light, fall precautions. nj1 14:30 Patient has correct armband on for positive identification. Bed in low position. Call hi1 light in reach. Side rails up X 1. Adult w/ patient. 15:02 Troponin High Sensitivity Sent. ko1 15:55 Mirna Menon MD is Referral Physician. rt 15:57 IV discontinued, intact, bleeding controlled, No redness/swelling at site. Pressure ko1 dressing applied. Administered Medications: 14:08 Drug: Nitroglycerin Sublingual 0.4 mg Sublingual once Route: Sublingual; nj1 Medication: 15:57 VIS not applicable for this client. ko1 Outcome: 15:55 Discharge ordered by MD. rt 16:09 Discharged to home ambulatory, with family, ko1 16:09 Condition: stable 16:09 Discharge instructions given to patient, family, Instructed on discharge instructions, follow up and referral plans. Demonstrated understanding of instructions, follow-up care, 16:10 Patient left the ED. ko1 Signatures: Dispatcher [employer] EDMS April Lynne Eric em1 Alisia Chappell RN RN ko1 Jesse Elder MD MD rt Zoe Dahl RN RN nj1
--- NOTE | 2023-06-03 15:55 | EDPHYS ---
Physician Documentation [facility] Name: Saloni Reyna Age: 63 yrs Sex: Female : 1960 Arrival Date: 06/03/2023 Time: 13:36 Bed 8 Private MD: ED Physician Jesse Elder HPI: 06/03 17:22 This 63 yrs old Female presents to ER via EMS with complaints of Chest Pain. rt 17:22 Patient presents to the ED with a substernal chest pain described as a chest pressure rt starting about an hour prior to arrival. Is not exertional. She denies other acute complaints including shortness of breath, nausea, lightheadedness. Of note, patient does have cardiac stents in place. Denies aggravating or alleviating factors, symptoms are moderate severity. Patient did receive aspirin, 2 rounds of nitroglycerin by EMS which she stated then completely resolved her symptoms.. Historical: - Allergies: 14:21 No Known Allergies; nj1 - PMHx: 14:21 Hypertension; Coronary atherosclerosis; Hypercholesterolemia; nj1 - PSHx: 14:21 Stented artery; Coronary Angioplasty; nj1 - Immunization history:: Client reports having NOT received the Covid vaccine. - Social history:: Smoking status: Patient denies any tobacco usage or history of. - Family history:: not pertinent. ROS: 17:22 Constitutional: Negative for fever, chills, and weight loss, Respiratory: Negative for rt shortness of breath, cough, wheezing, and pleuritic chest pain, Abdomen/GI: Negative for abdominal pain, nausea, vomiting, diarrhea, and constipation, MS/Extremity: Negative for injury and deformity, Skin: Negative for injury, rash, and discoloration, Neuro: Negative for headache, weakness, numbness, tingling, and seizure, Psych: Negative for depression, anxiety, suicide ideation, homicidal ideation, and hallucinations, 17:22 Cardiovascular: Positive for chest pain, Negative for edema, Exam: 17:22 Constitutional: This is a well developed, well nourished patient who is awake, alert, rt and in no acute distress. Head/Face: Normocephalic, atraumatic. Chest/axilla: Normal chest wall appearance and motion. Nontender with no deformity. No lesions are appreciated. Cardiovascular: Regular rate and rhythm with a normal S1 and S2. No gallops, murmurs, or rubs. Normal PMI, no JVD. No pulse deficits. Respiratory: Lungs have equal breath sounds bilaterally, clear to auscultation and percussion. No rales, rhonchi or wheezes noted. No increased work of breathing, no retractions or nasal flaring. Abdomen/GI: Soft, non-tender, with normal bowel sounds. No distension or tympany. No guarding or rebound. No evidence of tenderness throughout. Skin: Warm, dry with normal turgor. Normal color with no rashes, no lesions, and no evidence of cellulitis. MS/ Extremity: Pulses equal, no cyanosis. Neurovascular intact. Full, normal range of motion. Neuro: Awake and alert, GCS 15, oriented to person, place, time, and situation. Cranial nerves II-XII grossly intact. Motor strength 5/5 in all extremities. Sensory grossly intact. Cerebellar exam normal. Normal gait. Psych: Awake, alert, with orientation to person, place and time. Behavior, mood, and affect are within normal limits. 17:22 ECG was reviewed by the Attending Physician. Vital Signs: 13:46 BP 167 / 92; Pulse 75; Resp 18; Temp 98.1(O); Pulse Ox 100% on R/A; Weight 58.97 kg; nj1 Height 5 ft. 4 in. ; Pain 2/10; 14:30 BP 145 / 84; Pulse 75; Resp 18; Pulse Ox 99% ; nj1 15:56 BP 150 / 83; Pulse 71; Resp 18; Pulse Ox 99% ; ko1 13:46 Body Mass Index 22.31 (58.97 kg, 162.56 cm) nj1 13:46 Pain Scale: Adult nj1 MDM: 13:40 Patient medically screened. rt 17:22 Differential diagnosis: acute myocardial infarction, coronary artery disease pneumonia, rt pneumothorax, unstable angina. HEART Score: History: Moderately Suspicious (1), ECG: Normal (0), Age: > 45 and < 65 years (1), Risk Factors: > or = 3 Risk factors for atherosclerotic disease (2), Troponin: < or = 1 x Normal Limit (0), Total Score = 4. Data reviewed: vital signs, nurses notes, lab test result(s), EKG, radiologic studies. Consideration of Admission/Observation Escalation of care including admission/observation considered. Given patient's known coronary artery disease, I recommended that the patient be admitted to the hospital. Her symptoms have resolved with more nitro in the ED. Patient states that she strongly does not wish to be admitted to the hospital, understands risk of missed cardiac event. 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 Repeat troponin is still negative. Shared decision-making was employed, patient to follow-up as an outpatient, strict return precautions were discussed with the patient.. I considered the following discharge prescriptions or medication management in the emergency department Medications were administered in the Emergency Department. See MAR. Independent interpretation of the following test(s) in the Emergency Department X-Ray: My interpretation is No consolidation seen on interpretation of x-ray images. Test considered but Not performed: CT: Do not suspect PE, CT angiogram not indicated. Care significantly affected by the following chronic conditions: Coronary artery disease. Counseling: I had a detailed discussion with the patient and/or guardian regarding the historical points, exam findings, and any diagnostic results supporting the discharge/admit diagnosis, lab results, radiology results, the need for outpatient follow up, to return to the emergency department if symptoms worsen or persist or if there are any questions or concerns that arise at home. Response to treatment: the patient's symptoms have resolved after treatment. 06/03 13:47 Order name: Basic Metabolic Panel; Complete Time: 14:35 rt 06/03 13:47 Order name: CBC with Diff; Complete Time: 14:35 rt 06/03 13:47 Order name: LFT's; Complete Time: 14:35 rt 06/03 13:47 Order name: Magnesium; Complete Time: 14:35 rt 06/03 13:47 Order name: NT PRO-BNP; Complete Time: 14:35 rt 06/03 13:47 Order name: Troponin HS; Complete Time: 14:35 rt 06/03 14:57 Order name: Troponin High Sensitivity; Complete Time: 15:37 rt 06/03 13:47 Order name: XRAY Chest (1 view); Complete Time: 14:43 rt 06/03 13:47 Order name: EKG; Complete Time: 13:48 rt 06/03 13:47 Order name: Cardiac monitoring; Complete Time: 14:03 rt 06/03 13:47 Order name: EKG - Nurse/Tech; Complete Time: 13:52 rt 06/03 13:47 Order name: IV Saline Lock; Complete Time: 14:03 rt 06/03 13:47 Order name: Labs collected and sent; Complete Time: 14:03 rt 06/03 13:47 Order name: O2 Per Protocol; Complete Time: 14:03 rt 06/03 13:47 Order name: O2 Sat Monitoring; Complete Time: 14:03 rt EC:22 Rate is 76 beats/min. Rhythm is regular, Normal Sinus Rhythm with No ectopy. QRS [place] rt is Normal. VA interval is normal. QRS interval is normal. QT interval is normal. No Q waves. T waves are Normal. No ST changes noted. Interpreted by me. Administered Medications: 14:08 Drug: Nitroglycerin Sublingual 0.4 mg Sublingual once Route: Sublingual; nj1 Disposition Summary: 06/03/23 15:55 Discharge Ordered Notes: Location: Home rt Problem: new rt Symptoms: are resolved rt Condition: Stable rt Diagnosis - Chest pain, unspecified rt Followup: rt - With: Mirna Menon MD - When: 1 - 2 days - Reason: Discharge Instructions: - Discharge Summary Sheet rt - Nonspecific Chest Pain, Adult rt Forms: - Medication Reconciliation Form rt - Thank You Letter rt - Antibiotic Education rt - Prescription Opioid Use rt - Patient Portal Instructions rt - Leadership Thank You Letter rt Signatures: Dispatcher [employer] Jesse Rojas MD MD rt Zoe Dahl, RN RN nj1
[2023-06-03 17:41] VITALS: TEMP 98.1
[2023-06-03 17:42] VITALS: O2SAT 99
[2023-06-03 17:43] VITALS: BP 150/83
--- NOTE | 2023-06-04 13:39 | EKG ---
Test Date: 2023-06-03 Test Time: 13:47:58 Resident Services Manager: JACKIE MEASUREMENT RESULTS: Intervals: Rate: 76 NM: 140 QRSD: 74 QT: 412 QTc: 463 [place]: P: 47 NM: 140 QRS: 75 T: 52 INTERPRETIVE STATEMENTS: Normal sinus rhythm Normal ECG Compared to ECG 03/05/2018 21:52:36 ST (T wave) deviation no longer present Electronically Signed On 06-04-23 13:36:56 CDT by Surinder Remy
== END 2023-06-03 16:10 | disposition home or self-care (01) ==
LOC: ER 13:36
DX: R07.9 Chest pain, unspecified (principal); I10 Essential (primary) hypertension; Z98.61 Coronary angioplasty status; I25.10 Atherosclerotic heart disease of native coronary artery without angina pectoris; Z28.310 Unvaccinated for COVID-19
CPT/HCPCS: 36415; 71045; 80048; 80076; 83735; 83880; 84484; 85025; 93005